=== PATIENT | female | born 1960 | race Caucasian/White ===

== ENCOUNTER 2018-02-19 08:33 | Emergency (ER) | payer SELFPAY ==
--- NOTE | 2018-02-19 10:03 | ER Document Report ---
ED General - General Chief Complaint: Cough Stated Complaint: COUGHING Time Seen by Provider: 02/19/18 09:03 TRAVEL OUTSIDE OF THE [place] IN LAST 30 DAYS: No - HPI Notes: Patient is a 57-year-old female that presents to the emergency department for chief complaint of cough. She reports sinus congestion and cough for 1-1/2 months. She states she has a thick mucus production. She has tried Mucinex and Robitussin at home with minimal relief. She reports constant sinus drainage and congestion. She denies any fevers or chills, chest pain, shortness of breath, lightheadedness, nausea vomiting or diarrhea. She is otherwise healthy. She states she might be taking lisinopril as a blood pressure medication but is not sure. She states she has not seen her primary care doctor because she would have to pay out of pocket since she does not currently have insurance. Past Medical History: Hypertension, sleep apnea, depression Past Surgical History: Negative Social History: Denies drugs alcohol and tobacco Family History: Reviewed and noncontributory for presenting illness Allergies: Reviewed, see documented allergy list. REVIEW OF SYSTEMS: CONSTITUTIONAL : No fever No chills No diaphoresis No recent illness EENT: No vision changes congestion No sore throat CARDIOVASCULAR: No chest pain No palpitations RESPIRATORY: No shortness of breath cough No difficulty breathing GASTROINTESTINAL: No abdominal pain No nausea No vomiting No diarrhea GENITOURINARY: No dysuria No hematuria No difficulty urinating MUSCULOSKELETAL: No back pain No leg pain No arm pain SKIN: No rashes No lesions LYMPHATIC: No swollen, enlarged glands. NEUROLOGICAL: No lightheadedness No headache No weakness No paresthesias PSYCHIATRIC: No anxiety No depression PHYSICAL EXAMINATION: Vital signs reviewed, nursing noted reviewed. GENERAL: Well-appearing, well-nourished and in no acute distress. HEAD: Atraumatic, normocephalic. EYES: Eyes appear normal, extraocular movements intact, sclera anicteric, conjunctiva are normal. ENT: Bilateral nasal mucosal edema and rhinorrhea, no sinus tenderness to percussion, mucosal drainage in posterior oropharynx. Moist mucous membranes. NECK: Normal range of motion, supple without lymphadenopathy LUNGS: Breath sounds clear to auscultation bilaterally and equal. No wheezes rales or rhonchi. HEART: Regular rate and rhythm without murmurs ABDOMEN: Soft, nontender, normoactive bowel sounds. No rebound, guarding, or rigidity. No masses appreciated. EXTREMITIES: Nontender, good range of motion, no pitting or edema. NEUROLOGICAL: No focal neurological deficits. Moves all extremities spontaneously Motor and sensory grossly intact on exam. PSYCH: Normal mood, normal affect. SKIN: Warm, Dry, normal turgor, no rashes or lesions noted on exposed skin - Related Data Allergies/Adverse Reactions: No Known Allergies Allergy (Verified 02/19/18 08:35) Past Medical History - Social History Smoking Status: Unknown if Ever Smoked Chew tobacco use (# tins/day): No Frequency of alcohol use: None Drug Abuse: None Family History: CAD, DM, Malignancy, Other - renal disease Patient has suicidal ideation: No Patient has homicidal ideation: No - Past Medical History Cardiac Medical History: Reports: Hx Hypercholesterolemia, Hx Hypertension Pulmonary Medical History: Reports: Hx Asthma, Hx Pneumonia Endocrine Medical History: Reports: Hx Hypothyroidism Renal/ Medical History: Denies: Hx Peritoneal Dialysis GI Medical History: Reports: Hx Gastroesophageal Reflux Disease Skin Medical History: Reports Hx Eczema Psychiatric Medical History: Reports: Hx Depression - Immunizations Immunizations up to date: Yes Hx Diphtheria, Pertussis, Tetanus Vaccination: Yes Review of Systems - Review of Systems Notes: Dictated Physical Exam - Vital signs Vitals: Temp Pulse Resp BP Pulse Ox 98.1 F 62 16 152/74 H 96 02/19/18 08:40 02/19/18 08:40 02/19/18 08:40 02/19/18 08:40 02/19/18 08:40 - Notes Notes: Dictated Course - Re-evaluation Re-evalutation: 02/19/18 10:02 Vitals reviewed. Nursing notes reviewed. Patient is breathing well on room air and in no acute respiratory distress. Chest x-ray shows no pneumonia. Patient is afebrile and nontoxic. She does have a significant amount of sinus congestion with postnasal drip. She will be started on Claritin and Nasonex. She was advised to talk to her primary care doctor if she is on lisinopril and we discussed the side effect of cough with PABLO inhibitors. Patient was discharged home in stable condition and will follow with her primary care doctor in 1 week if symptoms are not improving. She will return for new or worsening symptoms. Stable at discharge. - Vital Signs Vital signs: Temp Pulse Resp BP Pulse Ox 98.1 F 62 16 152/74 H 96 02/19/18 08:40 02/19/18 08:40 02/19/18 08:40 02/19/18 08:40 02/19/18 08:40 - Diagnostic Test Radiology reviewed: Image reviewed Discharge - Discharge Clinical Impression: Cough, Nasal congestion Condition: Stable Disposition: HOME, SELF-CARE Additional Instructions: Please return to the emergency department if you have any worsening, or concern of your symptoms. Please return to the emergency department if you develop chest pain, difficulty breathing, severe abdominal pain, or ongoing vomiting. Please follow-up with your primary care physician in 2-3 days and any other recommended physicians. If prescribed, take all medications as directed. If you have any questions or concerns do not hesitate to return the emergency department for evaluation. Review your blood pressure medications, if you are on lisinopril talk to your doctor about changing this medication. Lisinopril can cause a cough as a side effect. Prescriptions: Loratadine [Claritin 10 mg Tablet] 10 mg PO DAILY #30 tablet Mometasone Furoate [Nasonex] 2 spray NS Q12 #1 spray.pump Referrals: ELOISE DUFFY MD [Primary Care Provider] - Follow up in 1 week
[2018-02-19 10:16] VITALS: BP 126/86
--- NOTE | 2018-02-19 10:20 | RADIOLOGY REPORT (SQ) ---
EXAM DESCRIPTION: CHEST SINGLE VIEW COMPLETED DATE/TIME: 02/19/2018 9:43 am REASON FOR STUDY: cough COMPARISON: Two-view chest 03/01/2014 EXAM PARAMETERS: NUMBER OF VIEWS: One view. TECHNIQUE: Single frontal radiographic view of the chest acquired. RADIATION DOSE: NA LIMITATIONS: None. FINDINGS: LUNGS AND PLEURA: No opacities, masses or pneumothorax. No pleural effusion. MEDIASTINUM AND HILAR STRUCTURES: No masses. Contour normal. HEART AND VASCULAR STRUCTURES: Heart normal in size. Normal vasculature. BONES: No acute findings. HARDWARE: None in the chest. OTHER: No other significant finding. IMPRESSION: NO ACUTE RADIOGRAPHIC FINDING IN THE CHEST. TECHNICAL DOCUMENTATION: JOB ID: [id number] [employer]- All Rights Reserved Reading location - IP/workstation name: [email or web address]
== END 2018-02-19 10:11 | disposition home or self-care (01) ==
LOC: ER 08:33
DX: R05 Cough (principal); R09.81 Nasal congestion; I10 Essential (primary) hypertension; E78.00 Pure hypercholesterolemia, unspecified; E03.9 Hypothyroidism, unspecified
CPT/HCPCS: 71045; 99283

== ENCOUNTER 2018-03-27 21:59 | Emergency (ER) | payer SELFPAY ==
[2018-03-27 22:14] VITALS: BP 155/91
[2018-03-27] MEDS ORDERED: IBUPROFEN 600 MG TABLET PO ONE (23:03)
[2018-03-27] MEDS ORDERED: ACETAMINOPHEN 325 MG TABLET PO ONE (23:03)
--- NOTE | 2018-03-27 23:17 | ER Document Report ---
ED General - General Chief Complaint: Cough Stated Complaint: COUGHING FOR WEEKS, SPITTING UP BLOOD Time Seen by Provider: 03/27/18 22:55 Notes: Patient is a 57-year-old female who presents to the emergency department with a chief complaint of a cough. She states that she has had the cough for a few weeks. She states that she started to cough up just a little bit of blood, but she has been coughing for a long time. She has a history of pneumonia. She states she feels the same as when she had pneumonia before. Her other past medical history includes hypertension and mood disorder, which she takes medications for. TRAVEL OUTSIDE OF THE [place] IN LAST 30 DAYS: No COUNTRY TRAVELED TO/FROM: [facility] - Related Data Allergies/Adverse Reactions: No Known Allergies Allergy (Verified 02/19/18 08:35) Past Medical History - Social History Smoking Status: Never Smoker Frequency of alcohol use: None Drug Abuse: None Lives with: Family Family History: Reviewed & Not Pertinent, CAD, DM, Malignancy, Other - renal disease - Past Medical History Cardiac Medical History: Reports: Hx Hypercholesterolemia, Hx Hypertension Pulmonary Medical History: Reports: Hx Asthma, Hx Pneumonia Endocrine Medical History: Reports: Hx Hypothyroidism Renal/ Medical History: Denies: Hx Peritoneal Dialysis GI Medical History: Reports: Hx Gastroesophageal Reflux Disease Skin Medical History: Reports Hx Eczema Psychiatric Medical History: Reports: Hx Depression - Immunizations Immunizations up to date: Yes Hx Diphtheria, Pertussis, Tetanus Vaccination: Yes Review of Systems - Review of Systems Notes: REVIEW OF SYSTEMS: CONSTITUTIONAL : Denies recent illness. Denies recent unintentional weight loss. Denies fever, chills, or sweats. EENT: See HPI CARDIOVASCULAR: Denies chest pain. RESPIRATORY: See HPI GASTROINTESTINAL: Denies nausea, vomiting, and diarrhea. Denies abdominal pain. Denies constipation. GENITOURINARY: Denies difficulty urinating, burning, blood in urine, urgency or frequency. MUSCULOSKELETAL: Denies neck and back pain. Denies joint pain or swelling. SKIN: Denies rash, itchiness, or lesions HEMATOLOGIC : Denies easy bruising or bleeding. LYMPHATIC: Denies swollen, painful, enlarged glands. NEUROLOGICAL: Denies no numbness or tingling denies weakness. Denies headache. Denies altered mental status. Denies alteration in speech. PSYCHIATRIC: Denies stress, anxiety, alteration in sleep patterns, or depression. All other systems reviewed and negative. Physical Exam - Vital signs Vitals: Temp Pulse Resp BP Pulse Ox 97.6 F 62 17 155/91 H 97 18 21:59 1218 21:59 1218 21:59 1218 21:59 12 21:59 - Notes Notes: PHYSICAL EXAMINATION: GENERAL: Appears well, healthy, well-nourished, no acute distress. HEAD: Normocephalic, atraumatic. EYES: PERRL, conjunctiva normal, all extraocular movements intact, sclera nonicteric ENT: Moist mucous membranes. Erythema noted to left tympanic membrane. NECK: Supple, no noticeable swelling, redness, rash. Normal range of motion. LUNGS: Equal breath sounds bilaterally and clear to auscultation. No wheezes rales or rhonchi. CARDIOVASCULAR: S1-S2, regular rate, regular rhythm. Radial pulses 2+, normal. ABDOMEN: Normoactive bowel sounds. Soft, nontender, no guarding, no rebound tenderness, and no masses palpated. EXTREMITIES: Normal strength and range of motion, no pitting or edema. No cyanosis. NEUROLOGICAL: Moves all extremities upon command. Strength 5/5 in all extremities. PSYCH: Normal mood, normal affect. SKIN: Warm, dry. No rash, lesions, ulcerations noted. Normal skin turgor. Course - Re-evaluation Re-evalutation: 03/28/18 23:10 Patient will be given Motrin and Tylenol for her pain. A chest x-ray will be done since she has been having a cough. She does have erythema noted to her left tympanic membrane. She will be treated with amoxicillin upon discharge. 03/28/18 00:09 Patient's chest x-ray is normal. I have discussed these findings with the patient. Like stated above, she will be discharged with amoxicillin. I do not suspect she has mastoiditis. Verbal discharge instructions were given to the patient. She verbalized understanding. She is stable for discharge. - Vital Signs Vital signs: Temp Pulse Resp BP Pulse Ox 97.6 F 62 17 155/91 H 97 18 21:59 1218 21:59 1218 21:59 18 21:59 03/27/18 21:59 - Diagnostic Test Radiology results interpreted by me: Chest x-ray with no acute infiltrate. Discharge - Discharge Clinical Impression: Cough Left otitis media Qualifiers: Otitis media type: other nonsuppurative Chronicity: acute Recurrence: non- recurrent Qualified Code(s): H65.192 - Other acute nonsuppurative otitis media, left ear Condition: Stable Disposition: HOME, SELF-CARE Additional Instructions: You were seen today for a cough. You chest x-ray is normal. You do not have pneumonia. You do have an ear infection. You have been given antibiotics for the ear infection. Even if you start to feel better, please finish your antibiotic. You may take Motrin 600 mg and Tylenol 1000 mg every 6 hours as needed for the pain. You have also been given Tessalon Perles for the cough. You may take 1 capsule every 8 hours as needed for your cough. If you develop a fever greater than 100.4 F, develop shortness of breath, or have any symptoms that are worrisome to you, please return to the emergency department. Follow-up with your primary care provider in 3-4 days. Prescriptions: Benzonatate [Tessalon Perles 100 mg Capsule] 100 mg PO Q8HP PRN #40 capsule PRN Reason: Cough Amoxicillin Trihydrate [Amoxil 875 mg Tablet] 1 tab PO BID #20 tablet Referrals: ELOISE DUFFY MD [Primary Care Provider] - Follow up as needed
--- NOTE | 2018-03-27 23:33 | RADIOLOGY REPORT (SQ) ---
XR CHEST 2 VIEWS HISTORY: Cough . COMPARISON: 02/19/2018 FINDINGS: The cardiomediastinal silhouette is unremarkable. The lungs are clear. No pleural effusion or pneumothorax is identified. IMPRESSION: No acute cardiopulmonary abnormality.
[2018-03-28] MEDS ORDERED: AMOXICILLIN TRIHYDRATE 500 MG CAPSULE PO ONE (00:08)
[2018-03-28] MEDS ORDERED: BENZONATATE 100 MG CAPSULE PO ONE (00:16)
== END 2018-03-28 00:54 | disposition home or self-care (01) ==
LOC: ER 21:59
DX: H65.192 Other acute nonsuppurative otitis media, left ear (principal); R05 Cough; I10 Essential (primary) hypertension; J45.909 Unspecified asthma, uncomplicated
CPT/HCPCS: 71046; 99283

== ENCOUNTER 2019-01-21 08:57 | Emergency (ER) | payer SELFPAY ==
--- NOTE | 2019-01-21 11:13 | ER Document Report ---
ED Skin Rash/Insect Bite/Abscs - General Chief Complaint: Rash Stated Complaint: RASH Time Seen by Provider: 01/21/19 10:59 Primary Care Provider: ELOISE DUFFY MD [Primary Care Provider] - Follow up as needed Mode of Arrival: Ambulatory Information source: Patient TRAVEL OUTSIDE OF THE [place] IN LAST 30 DAYS: No COUNTRY TRAVELED TO/FROM: [facility] - HPI Patient complains to provider of: Skin rash/lesion - Pt with skin rash under L axilla for the past 2-3 weeks. She has tried desitin ointment without success. It is somewhat pruritic but not painful. She denies insect bite or stings, new foods, soaps, detergents, or perfume. - Related Data Allergies/Adverse Reactions: No Known Allergies Allergy (Verified 02/19/18 08:35) Past Medical History - General Information source: Patient - Social History Smoking Status: Former Smoker Frequency of alcohol use: None Drug Abuse: None Family History: Reviewed & Not Pertinent, CAD, DM, Malignancy, Other - renal disease Patient has suicidal ideation: No Patient has homicidal ideation: No - Past Medical History Cardiac Medical History: Reports: Hx Hypercholesterolemia, Hx Hypertension Pulmonary Medical History: Reports: Hx Asthma, Hx Pneumonia Endocrine Medical History: Reports: Hx Hypothyroidism Renal/ Medical History: Denies: Hx Peritoneal Dialysis GI Medical History: Reports: Hx Gastroesophageal Reflux Disease Skin Medical History: Reports Hx Eczema Psychiatric Medical History: Reports: Hx Depression - Immunizations Immunizations up to date: Yes Hx Diphtheria, Pertussis, Tetanus Vaccination: Yes Review of Systems - Review of Systems Constitutional: No symptoms reported EENT: No symptoms reported Cardiovascular: No symptoms reported Respiratory: No symptoms reported Gastrointestinal: No symptoms reported Musculoskeletal: No symptoms reported Skin: See HPI, Rash Neurological/Psychological: No symptoms reported -: Yes All other systems reviewed and negative Physical Exam - Vital signs Vitals: Temp Pulse Resp BP Pulse Ox 97.9 F 69 18 154/73 H 97 01/21/19 09:35 01/21/19 09:35 01/21/19 09:35 01/21/19 09:35 01/21/19 09:35 - General General appearance: Appears well In distress: None - Skin Skin Color: Other - there is a 10 by 12 cm somewhat excoriated area in the L axilla with erythema and scaly white border. There are no vesicles present. Course - Vital Signs Vital signs: Temp Pulse Resp BP Pulse Ox 97.9 F 69 18 154/73 H 97 01/21/19 09:35 01/21/19 09:35 01/21/19 09:35 01/21/19 09:35 01/21/19 09:35 Discharge - Discharge Clinical Impression: Dermatitis Condition: Stable Disposition: HOME, SELF-CARE Instructions: Corticosteroid Medication ([facility]), Topical Steroid Cream or Ointment ([facility]) Additional Instructions: rest, use meds as prescribed, return if worse Prescriptions: Cephalexin Monohydrate [Keflex 500 mg Capsule] 500 mg PO BID #10 capsule Clotrimazole/Betamethasone Dip [Lotrisone Cream] 1 applic TP DAILY #1 cream.gm. Referrals: ELOISE DUFFY MD [Primary Care Provider] - Follow up as needed
[2019-01-21 11:43] VITALS: BP 136/87
== END 2019-01-21 11:35 | disposition home or self-care (01) ==
LOC: ER 08:57
DX: L30.9 Dermatitis, unspecified (principal); I10 Essential (primary) hypertension; J45.909 Unspecified asthma, uncomplicated; Z87.891 Personal history of nicotine dependence
CPT/HCPCS: 99282